=== PATIENT | female | born 1970 | race Caucasian/White ===

== ENCOUNTER → 2020-05-03 | Outpatient (CLI) | payer OTHER | LOC: RAD 12:40 | DX: M54.2 Cervicalgia (principal) | CPT/HCPCS: 72040 ==

== ENCOUNTER → 2020-07-16 | Outpatient (CLI) | payer OTHER | LOC: EXRD 11:21 | DX: R13.10 Dysphagia, unspecified (principal); E04.1 Nontoxic single thyroid nodule | CPT/HCPCS: 76536 ==

== ENCOUNTER → 2021-06-06 | Outpatient (CLI) | payer OTHER | LOC: RAD 14:47 | DX: M54.16 Radiculopathy, lumbar region (principal) | CPT/HCPCS: 72100 ==

== ENCOUNTER → 2021-10-01 | Outpatient (CLI) | payer OTHER | LOC: EMI 09:00 | DX: M50.122 Cervical disc disorder at C5-C6 level with radiculopathy (principal); R29.2 Abnormal reflex; M51.86 Other intervertebral disc disorders, lumbar region | CPT/HCPCS: 72141; 72148 ==

== ENCOUNTER → 2021-12-15 | Outpatient (CLI) | payer OTHER | LOC: MAMO 12-11 13:30 | DX: Z12.31 Encounter for screening mammogram for malignant neoplasm of breast (principal) | CPT/HCPCS: 77063; 77067 ==